=== PATIENT | female | born 1980 | race Caucasian/White ===

== ENCOUNTER → 2017-12-27 | Outpatient (CLI) | payer OTHER ==
[~2017-12-27] MED LIST: ACE325 PO; ADV250/50 INH; ALB0.5 INH; ALBU8.5H12 IH; BECL8.7A2 IH; BENZ200C38 PO; BIS10S PR; BUTA-324 PO; CEP500 PO; CYC10 PO; DIP25 PO; DOC100 PO; DUL100/5PT IH; DUONEB INH; FENT-16 TD; FIO PO; FLUO40CA76 PO; HYDR-3140 PO; HYDR-4225 PO; HYDR1TAB PO; IBU200 PO; IBUP-1618 PO; KET10 PO; LEV15R INH; LEVA0.635 IH; LOR5/325 PO; LOR7.5/325 PO; MAGN296S36 PO; MOM PO; MON10 PO; MOX400 PO; OLO2ODPT OP; OND4 PO; ONDA4TAB PO; OXY10 PO; PAN40 PO; PER PO; PRE20 PO; PROM-100 PO; TRAZ50 PO; nasal spray
[2017-12-27 16:26] LABS: PLATELET COUNT, AUTOMATED 211 K/uL (150-450)
== END ==
LOC: LAB 15:59
PROVIDERS: ATTEND Nurse Practitioner Family
DX: R19.7 Diarrhea, unspecified (principal); R19.8 Other specified symptoms and signs involving the digestive system and abdomen; R10.9 Unspecified abdominal pain
CPT/HCPCS: 82040; 82150; 82247; 82310; 82374; 82435; 82565; 82784; 82947; 83690; 84075; 84132; 84155; 84295; 84450; 84460; 84520; 85025

== ENCOUNTER → 2017-12-28 | Outpatient (CLI) | payer OTHER ==
--- NOTE | 2017-12-28 15:50 | RADIOLOGY IMAGING REPORT ---
FACILITY: [facility] PATIENT NAME: Ashley Palomino : 1980 MR: [id number] V: [id number] EXAM DATE: ORDERING PHYSICIAN: VALENCIA MON TECHNOLOGIST: [place] [facility] [place] Ashley Palomino : 1980 Visit/Account:[id number] Date of Sevice: 12/28/2017 EXAMINATION: Abdominal ultrasound complete HISTORY: Abdominal pain. COMPARISON: CT and pelvis March 28, 2011 FINDINGS: Gallbladder: The patient is status post cholecystectomy Liver: Multiple echogenic foci are seen along the posterior dome of the liver. These correspond to c alcifications seen on prior CT of abdomen pelvis Common duct: Normal measuring 4.2 mm. Pancreas: Obscured by bowel gas Spleen: Normal in size and echogenicity measuring 9.6 cm in length. Kidneys: Normal in size and echogenicity, the right measures 10.5 cm in length, and the left 9.8 cm. No hydronephrosis. Upper abdominal aorta and IVC: Negative. Ascites: None. IMPRESSION: Post surgical changes from a cholecystectomy. Multiple echogenic foci along the posterior dome of the liver correspond to calcification seen on a p rior CT the abdomen and pelvis Report Dictated By: Chani Espinosa MD at 12/28/2017 3:21 PM Report E-Signed By: Chani Espinosa MD at 12/28/2017 3:46 PM WSN:[id number]
== END ==
LOC: US 06:49
PROVIDERS: ATTEND Nurse Practitioner Family
DX: R19.09 Other intra-abdominal and pelvic swelling, mass and lump (principal); Z90.49 Acquired absence of other specified parts of digestive tract
CPT/HCPCS: 76700

== ENCOUNTER 2018-05-23 13:00 | Outpatient (RCR) | payer OTHER ==
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
--- NOTE | 2018-03-17 10:55 | PT PLAN OF CARE ---
Physician: Pan More MD Patient is being seen: 2-3x/week Therapist: Zaki Carter, PT, DPT Medical Diagnosis: L shoulder injury, low-grad AC joint sprain Treatment Diagnosis: same Date of Onset: 02/17/18 Date of Initial Evaluation: 02/23/18 Date patient was last seen: 03/16/18 Number of treatments: 10 Number of cancellations/No shows: 0 INTERVENTIONS: Manual Therapy/STM/MET Strengthening/condition Ice/Heat Range of Motion Spinal Stabilization Work Hardening/Cond Stretching Iontophoresis Neuromuscular Re-ed Closed Chain Program Electrical Stim Posture/Body mechanics Home Exercise Program Therapeutic Activities GOALS: 2 weeks: Pt will demonstrate full L shoulder PROM in all directions to improve function and QOL. MET 4 week: Pt will demonstrate full L shoulder AAROM in all directions to improve function and QOL. NOT MET 8 weeks: Pt will demonstrate full L shoulder AROM in all directions to improve function and QOL. NOT MET 12 weeks: Pt will demonstrate full periscapular and RTC strength to improve function and QOL. NOT MET PATIENT'S GOAL: reduce shoulder pain, return to work Status of Patient's Goals: Progressing Patient Compliance: Good Prognosis: Good Reasons for continuing therapy: This is a progress note for Ashley Palomino. She reports that she feels like her neck is much better. She denies any current pain at her neck. She reports that she continues to have shoulder pain (along the posterior to anterior portion of the joint) and rates it to be 4/10. She reports that she had 0/10 pain this morning. She reports that the popping and grinding has gotten worse in the L shoulder especially with abduction and ER. She demonstrated full PROM in all directions, but continues to have empty end feels in all directions. She demonstrated improvements with her rotator cuff musculature with increased strength and reduced/abolished pain, however, she continues to demonstrates signs and symptoms consist with continued labrum/ biceps damage that has made minimal gains since coming to PT. Furthermore, she demonstrated potential directional preference with her shoulder as she demonstrated increased L shoulder AROM following the session. She also demonstrated full PROM in all directions, but continues to have empty end feels in all directions. Overall, I feel like the rotator cuff muscles are started to improve and heal appropriately through the process; however, I feel like the labrum and biceps are not healing appropriately resulting in minimal gains in that aspect of physical therapy. I am glad an MRI will be performed this coming week. Posture: She demonstrated minimal forward head, B rounded shoulders and increased thoracic kyphosis. ROM: R shoulder PROM-AROM: flexion: 180 deg, scaption: 180 deg, abduction: 180 deg, ER: 100 deg, IR: 90 deg. L shoulder PROM: flexion: 180 deg, abduction: 180 deg, scaption: 180 deg, ER: 90 deg, IR: 90 deg. She demonstrated empty end feels in all directions. Did not test AAROM or AROM due to increased pain with PROM. Strength: L shoulder: flexion: strong, scaption: strong. abduction: strong and painful. IR: strong. ER: strong and painful Palpation: TTP: anterior to posterior of the glenohumeral joint Special Tests: (+) load and shift = increased capsular laxity with L shoulder as compared to R shoulder and was extremely painful. (+) marissa, no , yvon for impingement. (+) apprehension test for the L shoulder. (+) drop arm sign. (+) L AC joint laxity as compared to R AC joint. Mobility: Independent If you have any questions, please contact me at [phone]. Thank you, Zaki Carter, PT, DPT BUFFY
--- NOTE | 2018-04-13 16:11 | PT PLAN OF CARE ---
Physician: Pan More MD Patient is being seen: 3X/week Therapist: Zaki Carter, PT, DPT Medical Diagnosis: L shoulder injury, low-grad AC joint sprain Treatment Diagnosis: same Date of Onset: 02/17/18 Date of Initial Evaluation: 02/23/18 Date patient was last seen: 04/13/18 Number of treatments: 21 Number of cancellations/No shows: 0 INTERVENTIONS: Manual Therapy/STM/MET Strengthening/condition Ice/Heat Range of Motion Spinal Stabilization Work Hardening/Cond Stretching Iontophoresis Neuromuscular Re-ed Closed Chain Program Electrical Stim Posture/Body mechanics Home Exercise Program Therapeutic Activities GOALS: 2 weeks: Pt will demonstrate full L shoulder PROM in all directions to improve function and QOL. MET 4 week: Pt will demonstrate full L shoulder AAROM in all directions to improve function and QOL. NOT MET 8 weeks: Pt will demonstrate full L shoulder AROM in all directions to improve function and QOL. NOT MET 12 weeks: Pt will demonstrate full periscapular and RTC strength to improve function and QOL. NOT MET PATIENT'S GOAL: reduce shoulder pain, return to work Status of Patient's Goals: Progressing Patient Compliance: Good Prognosis: Good Reasons for continuing therapy: This is a progress note for Ashley Palomino. She reports that she feels like her neck is completely resolved. She denies any current pain at her neck. She reports that she continues to have shoulder pain (along the posterior to anterior portion of the joint) and rates it to be 4/10. She reports that she has numbness and tingling down into her hand. She reports that she continues to move and stretch her shoulder. Furthermore, she reports increased pain with prolonged sitting. She continues to demonstrate full flexion and IR PROM, abolished numbness and tingling (following subscap muscle release) increased periscapular strength, and continued anterior instability and painful PROM into abduction and ER. Progress continues to be minimal to no gains with reduction of anterior instability; however, the RTC's continue to improve. We will continue to maintain her ROM and continue to strengthen her periscapular musculars and RTC's. Posture: She demonstrated minimal forward head, B rounded shoulders and increased thoracic kyphosis. ROM: R shoulder PROM-AROM: flexion: 180 deg, scaption: 180 deg, abduction: 180 deg, ER: 100 deg, IR: 90 deg. L shoulder PROM: flexion: 180 deg, abduction: 180 deg, scaption: 180 deg, ER: 90 deg, IR: 90 deg. She demonstrated empty end feels in all directions. Did not test AAROM or AROM due to increased pain with PROM. Strength: L shoulder: flexion: strong, scaption: strong. abduction: strong and painful. IR: strong. ER: strong and painful Palpation: TTP: anterior to posterior of the glenohumeral joint Special Tests: (+) load and shift = increased capsular laxity with L shoulder as compared to R shoulder and was extremely painful. (+) no ann yocums for impingement. (+) apprehension test for the L shoulder. (+) drop arm sign. (+) L AC joint laxity as compared to R AC joint. Mobility: Independent If you have any questions, please contact me at [phone]. Thank you, Zaki Carter, PT, DPT BUFFY
--- NOTE | 2018-04-25 09:38 | PT PLAN OF CARE ---
Physician: Ra Lucero MD Patient is being seen: 2-3x/week Therapist: Zaki Carter, PT, DPT Medical Diagnosis: L shoulder arthroscopy SLAP grade II repair Treatment Diagnosis: same Date of Onset: 02/17/18 Date of Initial Evaluation: 02/23/18 Date patient was last seen: 04/25/18 Number of treatments: 24: Re-evaluation following surgical procedure Number of cancellations/No shows: 0 INTERVENTIONS: Manual Therapy/STM/MET Strengthening/condition Ice/Heat Range of Motion Spinal Stabilization Work Hardening/Cond Stretching Iontophoresis Neuromuscular Re-ed Closed Chain Program Electrical Stim Posture/Body mechanics Home Exercise Program Therapeutic Activities GOALS: 2 weeks: Pt will demonstrate full L shoulder PROM in all directions to improve function and QOL (flexion, abduction, IR, neutral ER). 8 week: Pt will demonstrate full L shoulder AAROM in all directions to improve function and QOL. 12 weeks: Pt will demonstrate full L shoulder AROM in all directions to improve function and QOL. 14 weeks: Pt will demonstrate full periscapular and RTC strength to improve function and QOL. PATIENT'S GOAL: reduce shoulder pain, return to work Status of Patient's Goals: Re-evaluation following surgical procedure Patient Compliance: Excellent Prognosis: Good Reasons for continuing therapy: This is the Re-evaluation following surgical procedure for Melissa Palomino. She reports that she had the surgical intervention on Wednesday to repair the bicipital tendon in a SLAP repair. She reports that she has been doing her home exercises that she was given following the surgical procedure. She reports that the exercises included hand squeezes, wrist AROM flexion and extension, and supination and pronation AROM. She reports that she has been icing and performing her exercises 3 times per day. She reports that the prior pain has abolished and now currently has some post surgical pain. She reports that she has been wearing her sling all the time. She reports that sleeping continues to be difficult due to positioning. She reports minimal drainage. She demonstrates improvements throughout the session with L shoulder PROM into flexion, IR, and abduction. Her incisions demonstrate minimal serosanguineous drainage on her steri-strips. She currently has no signs or symptoms of infection. BP is normal (118/82), however, SPO2% was 89-90%, which is normal for her due to asthma with narcotics and she reports that she has been doing deep breathing as much as possible to maintain normal parameters. We will continue to progress based on healing parameters along with per protocol. Posture: She demonstrated minimal forward head, B rounded shoulders and increased thoracic kyphosis. ROM: L shoulder PROM: flexion: 130 deg, , abduction: 90 deg, ER: neutral, IR: 60 deg. . She demonstrated empty end feels in all directions. Did not test AAROM or AROM due to recent surgical intervention. Strength: L shoulder: Did not test due to recent surgical intervention Mobility: Independent If you have any questions, please contact me at [phone]. Thank you, Zaki Carter, PT, DPT MTDD
--- NOTE | 2018-05-16 17:48 | PT PLAN OF CARE ---
Physician: Ra Lucero MD Patient is being seen: 2-3x/week Therapist: Zaki Carter, PT, DPT Medical Diagnosis: L shoulder arthroscopy SLAP grade II repair Treatment Diagnosis: same Date of Onset: 02/17/18 Date of Initial Evaluation: 02/23/18 Date patient was last seen: 05/16/18 Number of treatments: 31 Number of cancellations/No shows: 0 INTERVENTIONS: Manual Therapy/STM/MET Strengthening/condition Ice/Heat Range of Motion Spinal Stabilization Work Hardening/Cond Stretching Iontophoresis Neuromuscular Re-ed Closed Chain Program Electrical Stim Posture/Body mechanics Home Exercise Program Therapeutic Activities GOALS: 2 weeks: Pt will demonstrate full L shoulder PROM in all directions to improve function and QOL (flexion, abduction, IR, neutral ER). 8 week: Pt will demonstrate full L shoulder AAROM in all directions to improve function and QOL. 12 weeks: Pt will demonstrate full L shoulder AROM in all directions to improve function and QOL. 14 weeks: Pt will demonstrate full periscapular and RTC strength to improve function and QOL. PATIENT'S GOAL: reduce shoulder pain, return to work Status of Patient's Goals: Progressing well Patient Compliance: Excellent Prognosis: Good Reasons for continuing therapy: This is a progress note for Melissa Palomino. She reports that her L shoulder continues to be achy. She reports that some days the achiness is minimal and other days that the achiness in defiantly increased. She reports that she has been performing her home exercise program diligently. She reports that she has been following her precautions diligently. She continues to progress with increased L shoulder PROM into flexion, abduction, and IR along with L elbow PROM flexion and extension. She tolerated submaximal isometrics into IR/ER and abd/add without any increase in pain during or following. We will continue to improve PROM-AROM based on healing parameters and per protocol to return to prior level of function. Posture: She demonstrated minimal forward head, B rounded shoulders and increased thoracic kyphosis. ROM: L shoulder PROM: flexion: 170 deg, , abduction: 175 deg, ER: neutral, IR: 85 deg. . She demonstrated empty end feels in all directions. Did not test AAROM or AROM due to recent surgical intervention. Strength: L shoulder: Did not test due to recent surgical intervention Mobility: Independent If you have any questions, please contact me at [phone]. Thank you, Zaki Carter, PT, DPT MTDD
== END 2018-05-24 ==
LOC: PT 13:00
PROVIDERS: ATTEND Family Medicine
DX: S43.52XA Sprain of left acromioclavicular joint, initial encounter (principal); S43.402A Unspecified sprain of left shoulder joint, initial encounter; M25.512 Pain in left shoulder; V89.2XXA Person injured in unspecified motor-vehicle accident, traffic, initial encounter
CPT/HCPCS: 97162

== ENCOUNTER 2018-08-22 09:00 | Outpatient (RCR) | payer OTHER ==
--- NOTE | 2018-05-26 17:45 | PT PLAN OF CARE ---
Physician: Ra Lucero MD Patient is being seen: 2-3x/week Therapist: Zaki Carter, PT, DPT Medical Diagnosis: L shoulder arthroscopy SLAP grade II repair Treatment Diagnosis: same Date of Onset: 02/17/18 Date of Initial Evaluation: 02/23/18 Date patient was last seen: 05/25/18 Number of treatments: 35 Number of cancellations/No shows: 0 INTERVENTIONS: Manual Therapy/STM/MET Strengthening/condition Ice/Heat Range of Motion Spinal Stabilization Work Hardening/Cond Stretching Iontophoresis Neuromuscular Re-ed Closed Chain Program Electrical Stim Posture/Body mechanics Home Exercise Program Therapeutic Activities GOALS: 2 weeks: Pt will demonstrate full L shoulder PROM in all directions to improve function and QOL (flexion, abduction, IR, neutral ER). 8 week: Pt will demonstrate full L shoulder AAROM in all directions to improve function and QOL. 12 weeks: Pt will demonstrate full L shoulder AROM in all directions to improve function and QOL. 14 weeks: Pt will demonstrate full periscapular and RTC strength to improve function and QOL. PATIENT'S GOAL: reduce shoulder pain, return to work Status of Patient's Goals: Progressing well Patient Compliance: Excellent Prognosis: Good Reasons for continuing therapy: This is a progress note for Melissa Palomino. She reports that her L shoulder feels great today and denies any resting achiness. She reports that some days the achiness continues to go and go. She reports that she feels like performing her HEP more often is improving her range of motion and reducing the achiness and end range tightness. She reports that she has been performing her home exercise program diligently. She reports that she has been following her precautions diligently. She continues to progress with increased L shoulder PROM into flexion, abduction, and IR along with L elbow PROM flexion and extension. She tolerated submaximal isometrics into IR/ER and abd/add without any increase in pain during or following. We will continue to improve PROM-AROM based on healing parameters and per protocol to return to prior level of function. Posture: She demonstrated minimal forward head, B rounded shoulders and increased thoracic kyphosis. ROM: L shoulder PROM: flexion: 170 deg, , abduction: 175 deg, ER: at side 40 deg, IR: 85 deg.. She demonstrated empty end feels in all directions. Did not test AAROM or AROM due to recent surgical intervention. Strength: L shoulder: Did not test due to recent surgical intervention Mobility: Independent If you have any questions, please contact me at [phone]. Thank you, Zaki Carter, PT, DPT BUFFY
--- NOTE | 2018-06-28 09:54 | PT PLAN OF CARE ---
Physician: Ra Lucero MD Patient is being seen: 2-3x/week Therapist: Zaki Carter, PT, DPT Medical Diagnosis: L shoulder injury, low-grad AC joint sprain Treatment Diagnosis: same Date of Onset: 02/17/18 Date of Initial Evaluation: 02/23/18 Date patient was last seen: 06/28/18 Number of treatments: 45 Number of cancellations/No shows: 2 INTERVENTIONS: Manual Therapy/STM/MET Strengthening/condition Ice/Heat Range of Motion Spinal Stabilization Work Hardening/Cond Stretching Iontophoresis Neuromuscular Re-ed Closed Chain Program Electrical Stim Posture/Body mechanics Home Exercise Program Therapeutic Activities GOALS: 2 weeks: Pt will demonstrate full L shoulder PROM in all directions to improve function and QOL (flexion, abduction, IR, neutral ER). 8 week: Pt will demonstrate full L shoulder AAROM in all directions to improve function and QOL. 12 weeks: Pt will demonstrate full L shoulder AROM in all directions to improve function and QOL. 14 weeks: Pt will demonstrate full periscapular and RTC strength to improve function and QOL. PATIENT'S GOAL: reduce shoulder pain, return to work Status of Patient's Goals: Progressing well Patient Compliance: Excellent Prognosis: Good Reasons for continuing therapy: This is a progress note for Melissa Palomino. She reports that she feels like the shoulder is doing much better. She reports that she has less overall pain in the shoulder. She reports that she continues to stretch as much as possible and is starting to feel less and less end range tightness. She is progressing well with PROM-AROM of the L shoulder in all directions. She continues to have end range restriction with flexion, abduction, and ER; however, since the previous plan of care, she has made significant improvements in range of motion. Furthermore, she is progressing well with L shoulder AROM in all directions in positions that eliminates the stress on the biceps. In addition, she continues to progress with RTC strength: IR/ER strength maintaining at neutral and avoiding bicep involvement. We will continue to progress PROM-AROM in all directions and continually improve periscapular strength and RTC strength keeping in mind the stages of healing along with the protocol to return to prior level of function. Posture: She demonstrated minimal forward head, B rounded shoulders and increased thoracic kyphosis. ROM: L shoulder PROM: flexion: 172 deg, scaption: 180 degrees, abduction: 150 deg, ER: at side 70 deg, IR: 90 deg.. She demonstrated empty end feels in all directions. AROM: supine abduction: 150 degrees, sidelying flexion: 155 deg Mobility: Independent If you have any questions, please contact me at [phone]. Thank you, Zaki Carter, PT, DPT CLIVED
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
== END 2018-08-23 ==
LOC: PT 09:00
PROVIDERS: ATTEND Family Medicine
DX: Z47.89 Encounter for other orthopedic aftercare (principal); M25.512 Pain in left shoulder; S43.52XA Sprain of left acromioclavicular joint, initial encounter; S43.402A Unspecified sprain of left shoulder joint, initial encounter; V89.2XXA Person injured in unspecified motor-vehicle accident, traffic, initial encounter

== ENCOUNTER 2018-11-14 08:15 | Outpatient (RCR) | payer OTHER ==
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
== END 2018-11-23 ==
LOC: PT 08:15
PROVIDERS: ATTEND Family Medicine
DX: M25.512 Pain in left shoulder (principal); S43.52XA Sprain of left acromioclavicular joint, initial encounter; S43.402A Unspecified sprain of left shoulder joint, initial encounter; V89.2XXA Person injured in unspecified motor-vehicle accident, traffic, initial encounter

== ENCOUNTER 2019-02-21 08:15 | Outpatient (RCR) | payer OTHER, BC ==
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
== END 2019-02-27 ==
LOC: PT 08:15
PROVIDERS: ATTEND Family Medicine
DX: M25.512 Pain in left shoulder (principal); S43.52XD Sprain of left acromioclavicular joint, subsequent encounter; S43.402D Unspecified sprain of left shoulder joint, subsequent encounter; V89.2XXA Person injured in unspecified motor-vehicle accident, traffic, initial encounter

== ENCOUNTER 2019-03-28 15:08 | Outpatient (RCR) | payer OTHER, BC ==
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
== END 2019-03-28 18:00 | disposition home or self-care (01) ==
LOC: PT 15:08
PROVIDERS: ATTEND Family Medicine
DX: M25.512 Pain in left shoulder (principal); S43.52XD Sprain of left acromioclavicular joint, subsequent encounter; S43.402D Unspecified sprain of left shoulder joint, subsequent encounter; V89.2XXA Person injured in unspecified motor-vehicle accident, traffic, initial encounter